=== PATIENT | male | born 1965 | race African-American/Black ===

== ENCOUNTER 2018-01-04 14:53 | Emergency (ER) | payer OTHER, MEDICAID ==
[~2018-01-04] VITALS: Ht 185.4 cm; Wt 172.4 kg
[2018-01-04 14:55] VITALS: BP_SYST 139
[2018-01-04 16:10] LABS: BASOPHILS # (AUTO) 0.1 K/uL (0.0-0.2); BASOPHILS % (AUTO) 1.5 % (0.0-2.0); EOSINOPHILS # (AUTO) 0.2 K/uL (0.0-0.4); EOSINOPHILS % (AUTO) 3.5 % (0.0-4.0); HEMATOCRIT 29.5 % (36-54); HEMOGLOBIN 9.5 g/dL (14.0-18.0); LYMPHOCYTES # (AUTO) 1.6 K/uL (1.0-5.5); LYMPHOCYTES % (AUTO) 33.3 % (20.5-51.5); MEAN CORPUSCULAR HEMOGLOBIN 27 pg (27-31); MEAN CORPUSCULAR HGB CONC 32 % (32-36); MEAN CORPUSCULAR VOLUME 84 fL (79.0-98.0); MONOCYTES # (AUTO) 0.4 K/uL (0.0-1.0); MONOCYTES % (AUTO) 8.8 % (1.7-9.3); NEUTROPHILS # (AUTO) 2.6 K/uL (1.8-7.7); NEUTROPHILS % (AUTO) 52.9 % (40.0-70.0); PLATELET COUNT (AUTO) 251 K/uL (130-430); RED BLOOD CELL COUNT(AUTO) 3.52 MIL/uL (4.2-6.2); RED CELL DISTRIBUTION WIDTH 19.1 % (9.0-15.0); WHITE BLOOD COUNT (AUTO) 4.9 K/uL (4.8-10.8)
[2018-01-04 16:22] LABS: CALCIUM 9.9 mg/dL (8.4-11.0); POTASSIUM 3.3 mmol/L (3.5-5.1)
[2018-01-04 16:27] LABS: ALBUMIN 3.3 g/dL (3.4-4.8); PROTHROMBIN TIME 10.4 SECS (9.5-12.5); TOTAL BILIRUBIN 0.5 mg/dL (0.0-1.0)
[2018-01-04 16:40] LABS: CREATININE 8.26 mg/dL (0.55-1.30)
[2018-01-04 17:46] VITALS: BP_SYST 121
== END 2018-01-04 17:46 | disposition home or self-care (01) ==
LOC: SED 14:53
DX: I16.1 Hypertensive emergency (principal); I12.0 Hypertensive chronic kidney disease with stage 5 chronic kidney disease or end stage renal disease; N18.6 End stage renal disease; M25.552 Pain in left hip; J45.909 Unspecified asthma, uncomplicated; K21.9 Gastro-esophageal reflux disease without esophagitis; Z86.79 Personal history of other diseases of the circulatory system; Z80.0 Family history of malignant neoplasm of digestive organs; Z90.89 Acquired absence of other organs; Z99.2 Dependence on renal dialysis
CPT/HCPCS: 36415; 71045; 73502; 80053; 82550-TC; 84484; 85025; 85610-TC; 85730-TC; 93005; 99285

== ENCOUNTER 2018-02-21 12:05 | Inpatient (IN) | payer OTHER, MEDICAID ==
[~2018-02-21] VITALS: Ht 182.9 cm; Wt 170.1 kg
[2018-02-21] VITALS (12 sets, daily range): BP systolic 93–152
[2018-02-21] MEDS ORDERED: ACETAMINOPHEN 500 MG TABLET PO ONE (12:15)
[2018-02-21] MEDS ORDERED: DILTIAZEM HCL 25 MG/5 ML VIAL IVP ONE (12:15)
[2018-02-21] MEDS ORDERED: NACL 0.9% 1,000 ML IV ONE ×3 (12:30→13:30)
[2018-02-21 12:49] LABS: BASOPHILS % (AUTO) 0.2 % (0.0-2.0); CALCIUM 10.9 mg/dL (8.4-11.0); EOSINOPHILS # (AUTO) 0.1 K/uL (0.0-0.4); EOSINOPHILS % (AUTO) 0.9 % (0.0-4.0); HEMATOCRIT 33.3 % (36-54); HEMOGLOBIN 10.6 g/dL (14.0-18.0); LYMPHOCYTES # (AUTO) 0.5 K/uL (1.0-5.5); LYMPHOCYTES % (AUTO) 5.7 % (20.5-51.5); MEAN CORPUSCULAR HEMOGLOBIN 28 pg (27-31); MEAN CORPUSCULAR HGB CONC 32 % (32-36); MEAN CORPUSCULAR VOLUME 86 fL (79.0-98.0); MONOCYTES # (AUTO) 0.6 K/uL (0.0-1.0); MONOCYTES % (AUTO) 7.2 % (1.7-9.3); NEUTROPHILS # (AUTO) 7.2 K/uL (1.8-7.7); PLATELET COUNT (AUTO) 250 K/uL (130-430); POTASSIUM 5.2 mmol/L (3.5-5.1); RED BLOOD CELL COUNT(AUTO) 3.87 MIL/uL (4.2-6.2); RED CELL DISTRIBUTION WIDTH 17.9 % (9.0-15.0); WHITE BLOOD COUNT (AUTO) 8.4 K/uL (4.8-10.8)
[2018-02-21 12:54] LABS: ALBUMIN 2.8 g/dL (3.4-4.8)
[2018-02-21 12:59] LABS: CREATININE 14.92 mg/dL (0.55-1.30)
[2018-02-21] MEDS ORDERED: ALPR1TAB2 PO (13:10)
[2018-02-21] MEDS ORDERED: NEPH PO (13:10)
[2018-02-21] MEDS ORDERED: CINA60TA PO (13:10)
[2018-02-21] MEDS ORDERED: DIPH50CA38 PO (13:10)
[2018-02-21] MEDS ORDERED: DULO60CA41 PO (13:10)
[2018-02-21] MEDS ORDERED: PREG75CA PO (13:10)
[2018-02-21] MEDS ORDERED: SEVE800T8 PO (13:10)
[2018-02-21] MEDS ORDERED: ALLO100T PO (13:10)
[2018-02-21] MEDS ORDERED: DOCU-144 PO (13:10)
[2018-02-21] MEDS ORDERED: ONDA8TAB9 PO (13:10)
[2018-02-21] MEDS ORDERED: CALC0.258 PO (13:10)
[2018-02-21] MEDS ORDERED: MIDO10TA PO (13:10)
[2018-02-21] MEDS ORDERED: HYDR-4100 PO (13:10)
[2018-02-21] MEDS ORDERED: ESOM40CA PO (13:10)
[2018-02-21] MEDS ORDERED: METO25TA3 PO (13:10)
[2018-02-21] MEDS ORDERED: ASPI325T2 PO (13:10)
[2018-02-21] MEDS ORDERED: ALBUTEROL SULFATE 0.083% 2.5 MG/3 ML VIAL.NEB INH ONE (13:15)
[2018-02-21] MEDS ORDERED: DOPamine PREMIX 250 ML IV ONE (13:54)
[2018-02-21] MEDS: DOPamine PREMIX 250 ML IV PRN ×2 (14:14→14:31)
[2018-02-21] MEDS ORDERED: *HEPARIN PER PHARMACY XX ONE (15:45)
[2018-02-21 16:08] LABS: INR 1.1 (0.80-1.20); PROTHROMBIN TIME 11.3 SECS (9.5-12.5)
[2018-02-21] MEDS ORDERED: HEPARIN SODIUM,PORCINE 5000 UNITS/ML VIAL IVP ONE (16:45)
[2018-02-21] MEDS ORDERED: VANCOMYCIN HCL 2,000 MG in NS 500 ML IV ONE (16:45)
[2018-02-21] MEDS ORDERED: HEPARIN 25,000 UNITS in 250 ML PREMIX IV PRN (17:00)
[2018-02-21] MEDS ORDERED: HEPARIN SODIUM,PORCINE 2000 UNITS/0.4 ML BOLUS IVP PRN (17:00)
[2018-02-21] MEDS ORDERED: HEPARIN SODIUM,PORCINE 3000 UNITS/0.6 ML BOLUS IVP PRN (17:00)
[2018-02-21] MEDS: D5NS 1,000 ML IV SCH (18:57)
[2018-02-21] MEDS: ALBUTEROL SULFATE 0.083% 2.5 MG/3 ML VIAL.NEB INH SCH ×2 (19:56→23:00)
[2018-02-21] MEDS: IPRATROPIUM BROM 0.5 MG/2.5 ML VIAL.NEB (ATROVENT) INH SCH ×2 (19:57→23:00)
[2018-02-22] VITALS (24 sets, daily range): BP systolic 93–148
[2018-02-22] MEDS: ALBUTEROL SULFATE 0.083% 2.5 MG/3 ML VIAL.NEB INH SCH ×6 (03:00→23:48)
[2018-02-22] MEDS: IPRATROPIUM BROM 0.5 MG/2.5 ML VIAL.NEB (ATROVENT) INH SCH ×6 (03:00→23:49)
[2018-02-22] MEDS: ACETAMINOPHEN 325 MG TABLET PO PRN ×2 (04:36→12:25)
[2018-02-22 06:10] LABS: ALBUMIN 2.2 g/dL (3.4-4.8); CALCIUM 9.7 mg/dL (8.4-11.0); POTASSIUM 4.7 mmol/L (3.5-5.1); TOTAL BILIRUBIN 0.9 mg/dL (0.0-1.0)
[2018-02-22 06:29] LABS: BASOPHILS % (AUTO) 0.4 % (0.0-2.0); EOSINOPHILS % (AUTO) 0.5 % (0.0-4.0); HEMATOCRIT 28.2 % (36-54); LYMPHOCYTES # (AUTO) 0.5 K/uL (1.0-5.5); LYMPHOCYTES % (AUTO) 9.8 % (20.5-51.5); MEAN CORPUSCULAR HEMOGLOBIN 28 pg (27-31); MEAN CORPUSCULAR HGB CONC 32 % (32-36); MEAN CORPUSCULAR VOLUME 86 fL (79.0-98.0); MONOCYTES # (AUTO) 0.6 K/uL (0.0-1.0); MONOCYTES % (AUTO) 12.6 % (1.7-9.3); NEUTROPHILS # (AUTO) 3.6 K/uL (1.8-7.7); NEUTROPHILS % (AUTO) 76.7 % (40.0-70.0); PLATELET COUNT (AUTO) 160 K/uL (130-430); RED BLOOD CELL COUNT(AUTO) 3.27 MIL/uL (4.2-6.2); WHITE BLOOD COUNT (AUTO) 4.7 K/uL (4.8-10.8)
[2018-02-22 06:35] LABS: CREATININE 10.48 mg/dL (0.55-1.30)
[2018-02-22] MEDS: DOPamine PREMIX 250 ML IV PRN ×2 (06:55→08:44)
[2018-02-22] MEDS: D5NS 1,000 ML IV SCH (10:31)
[2018-02-22] MEDS: IPRATROPIUM BROM 0.5 MG/2.5 ML VIAL.NEB (ATROVENT) INH PRN (13:42)
[2018-02-22] MEDS: ALBUTEROL SULFATE 0.083% 2.5 MG/3 ML VIAL.NEB INH PRN (13:43)
[2018-02-22] MEDS ORDERED: ACETAMINOPHEN 325 MG TABLET PO PRN (15:15)
[2018-02-22] MEDS ORDERED: AZITHROMYCIN 250 MG TABLET PO ONE (16:00)
[2018-02-22] MEDS: cefTRIAXone 1 GM in D5W 50 ML IV SCH (17:34)
[2018-02-22] MEDS: HEPARIN SODIUM,PORCINE 5000 UNITS/ML VIAL SUBCUT SCH (21:26)
[2018-02-23] VITALS (24 sets, daily range): BP systolic 98–169
[2018-02-23] MEDS: ALBUTEROL SULFATE 0.083% 2.5 MG/3 ML VIAL.NEB INH SCH ×6 (03:00→23:00)
[2018-02-23] MEDS: IPRATROPIUM BROM 0.5 MG/2.5 ML VIAL.NEB (ATROVENT) INH SCH ×6 (03:00→23:00)
[2018-02-23] MEDS: HEPARIN SODIUM,PORCINE 5000 UNITS/ML VIAL SUBCUT SCH ×3 (05:38→22:15)
[2018-02-23] MEDS: ACETAMINOPHEN 325 MG TABLET PO PRN (05:47)
[2018-02-23 06:15] LABS: HEPATITIS A AB, IgM Negative (Negative); HEPATITIS B CORE AB, IgM Negative (Negative); HEPATITIS B SURFACE AG Negative (Negative)
[2018-02-23 06:18] LABS: HEMATOCRIT 27.9 % (36-54); HEMOGLOBIN 9.1 g/dL (14.0-18.0); MEAN CORPUSCULAR HEMOGLOBIN 28 pg (27-31); MEAN CORPUSCULAR HGB CONC 33 % (32-36); MEAN CORPUSCULAR VOLUME 85 fL (79.0-98.0); PLATELET COUNT (AUTO) 152 K/uL (130-430); RED BLOOD CELL COUNT(AUTO) 3.28 MIL/uL (4.2-6.2); RED CELL DISTRIBUTION WIDTH 18.6 % (9.0-15.0); WHITE BLOOD COUNT (AUTO) 6.1 K/uL (4.8-10.8)
[2018-02-23 06:26] LABS: CALCIUM 10.2 mg/dL (8.4-11.0); POTASSIUM 5.4 mmol/L (3.5-5.1); TOTAL BILIRUBIN 0.6 mg/dL (0.0-1.0)
[2018-02-23 06:31] LABS: CREATININE 13.09 mg/dL (0.55-1.30)
[2018-02-23] MEDS: AZITHROMYCIN 250 MG TABLET PO SCH (08:24)
[2018-02-23] MEDS: HYDROcodone/ACETAMIN 5-325 MG TAB (NORCO/ VICODIN) PO PRN ×2 (08:27→17:22)
[2018-02-23 09:08] LABS: BAND % (MANUAL) 3 % (0-6); BASOPHILS % (MANUAL) 0 % (0-2); EOSINOPHILS % (MANUAL) 1 % (0-7); LYMPHOCYTES % (MANUAL) 14 % (20-46); MONOCYTES % (MANUAL) 20 % (0-11)
[2018-02-23] MEDS: cefTRIAXone 1 GM in D5W 50 ML IV SCH (17:22)
[2018-02-24] VITALS (24 sets, daily range): BP systolic 93–141
[2018-02-24] MEDS: ACETAMINOPHEN 325 MG TABLET PO PRN (00:33)
[2018-02-24] MEDS: IPRATROPIUM BROM 0.5 MG/2.5 ML VIAL.NEB (ATROVENT) INH SCH ×5 (03:00→20:07)
[2018-02-24] MEDS: ALBUTEROL SULFATE 0.083% 2.5 MG/3 ML VIAL.NEB INH SCH ×5 (03:00→20:08)
[2018-02-24] MEDS: HEPARIN SODIUM,PORCINE 5000 UNITS/ML VIAL SUBCUT SCH ×3 (06:01→21:23)
[2018-02-24 06:44] LABS: ALBUMIN 1.9 g/dL (3.4-4.8); CALCIUM 10.5 mg/dL (8.4-11.0); CREATININE 11.47 mg/dL (0.55-1.30); PHOSPHORUS 4.8 mg/dL (2.7-4.5); POTASSIUM 4.9 mmol/L (3.5-5.1); TOTAL BILIRUBIN 0.5 mg/dL (0.0-1.0)
[2018-02-24 06:57] LABS: BASOPHILS % (AUTO) 0.7 % (0.0-2.0); EOSINOPHILS # (AUTO) 0.1 K/uL (0.0-0.4); EOSINOPHILS % (AUTO) 1.7 % (0.0-4.0); HEMATOCRIT 27.4 % (36-54); HEMOGLOBIN 8.9 g/dL (14.0-18.0); LYMPHOCYTES # (AUTO) 0.9 K/uL (1.0-5.5); MEAN CORPUSCULAR HEMOGLOBIN 27 pg (27-31); MEAN CORPUSCULAR HGB CONC 32 % (32-36); MEAN CORPUSCULAR VOLUME 85 fL (79.0-98.0); MONOCYTES # (AUTO) 1.3 K/uL (0.0-1.0); MONOCYTES % (AUTO) 19.6 % (1.7-9.3); NEUTROPHILS # (AUTO) 4.6 K/uL (1.8-7.7); PLATELET COUNT (AUTO) 175 K/uL (130-430); RED BLOOD CELL COUNT(AUTO) 3.23 MIL/uL (4.2-6.2); RED CELL DISTRIBUTION WIDTH 18.8 % (9.0-15.0); WHITE BLOOD COUNT (AUTO) 6.9 K/uL (4.8-10.8)
[2018-02-24] MEDS: AZITHROMYCIN 250 MG TABLET PO SCH (09:28)
[2018-02-24] MEDS: HYDROcodone/ACETAMIN 5-325 MG TAB (NORCO/ VICODIN) PO PRN (11:22)
[2018-02-24] MEDS ORDERED: SEVELAMER CARBONATE 2400 MG PO SCH (14:00)
[2018-02-24] MEDS ORDERED: MIDODRINE HCL 5 MG TABLET (PROAMATINE) PO PRN (14:00)
[2018-02-24] MEDS ORDERED: NON-FORMULARY MEDICATION (Esomeprazole Mag Trihydrate (Nexium) 40 MG) PO SCH (14:00)
[2018-02-24] MEDS ORDERED: ACYCLOVIR 400 MG TABLET PO ONE (14:00)
[2018-02-24] MEDS: ALPRAZolam 0.25 MG TABLET PO SCH ×2 (14:43→21:21)
[2018-02-24] MEDS ORDERED: ASPIRIN 325 MG TABLET PO ONE (15:00)
[2018-02-24] MEDS ORDERED: NEPHROVITE, (FOLIC ACID/VITAMIN B COMP W-C 1 TAB) PO ONE (15:00)
[2018-02-24] MEDS ORDERED: methylPREDNISolone SOD SUCC/PF 62.5 MG/ML VIAL IVP ONE (15:15)
[2018-02-24] MEDS ORDERED: PANTOPRAZOLE SODIUM 40 MG TAB PO ONE (15:15)
[2018-02-24] MEDS ORDERED: ALLOPURINOL 100 MG TABLET (ZYLOPRIM) PO ONE (15:15)
[2018-02-24] MEDS ORDERED: METOPROLOL SUCCINATE 25 MG TAB.SR.24H (TOPROL XL) PO ONE (15:15)
[2018-02-24] MEDS ORDERED: CALCITRIOL 0.25 MCG CAPSULE PO ONE (15:15)
[2018-02-24] MEDS ORDERED: ALBUMIN HUMAN 25% 100 ML IV ONE (15:45)
[2018-02-24] MEDS: cefTRIAXone 1 GM in D5W 50 ML IV SCH (16:39)
[2018-02-24] MEDS: SEVELAMER HCL 800 MG TABLET PO SCH (18:31)
[2018-02-24] MEDS ORDERED: CEFEPIME 2 GM in D5W 100 ML IV ONE (18:45)
[2018-02-24] MEDS ORDERED: CEFEPIME 1 GM/VIAL (MAXIPIME) ONE (19:28)
[2018-02-24] MEDS: DOCUSATE SODIUM 100 MG CAPSULE PO SCH (21:21)
[2018-02-24] MEDS: CINACALCET HCL 30 MG TABLET PO SCH (21:21)
[2018-02-24] MEDS: ACYCLOVIR 400 MG TABLET PO SCH (21:21)
[2018-02-24] MEDS: methylPREDNISolone SOD SUCC/PF 62.5 MG/ML VIAL IVP SCH (21:22)
[2018-02-25] VITALS (25 sets, daily range): BP systolic 86–132
[2018-02-25] MEDS: methylPREDNISolone SOD SUCC/PF 62.5 MG/ML VIAL IVP SCH ×3 (05:11→21:11)
[2018-02-25] MEDS: IPRATROPIUM BROM 0.5 MG/2.5 ML VIAL.NEB (ATROVENT) INH PRN (05:13)
[2018-02-25] MEDS: ALBUTEROL SULFATE 0.083% 2.5 MG/3 ML VIAL.NEB INH PRN (05:13)
[2018-02-25] MEDS: HEPARIN SODIUM,PORCINE 5000 UNITS/ML VIAL SUBCUT SCH ×3 (05:15→21:14)
[2018-02-25 06:29] LABS: CALCIUM 10.6 mg/dL (8.4-11.0); POTASSIUM 4.5 mmol/L (3.5-5.1); VANCOMYCIN,RANDOM 6.7 ug/mL
[2018-02-25 06:35] LABS: HEMATOCRIT 28.7 % (36-54); HEMOGLOBIN 9.3 g/dL (14.0-18.0); MEAN CORPUSCULAR HEMOGLOBIN 28 pg (27-31); MEAN CORPUSCULAR HGB CONC 33 % (32-36); MEAN CORPUSCULAR VOLUME 85 fL (79.0-98.0); PLATELET COUNT (AUTO) 237 K/uL (130-430); RED BLOOD CELL COUNT(AUTO) 3.38 MIL/uL (4.2-6.2); RED CELL DISTRIBUTION WIDTH 19.2 % (9.0-15.0)
[2018-02-25 06:46] LABS: CREATININE 9.54 mg/dL (0.55-1.30)
[2018-02-25] MEDS: HYDROcodone/ACETAMIN 5-325 MG TAB (NORCO/ VICODIN) PO PRN ×2 (08:04→16:59)
[2018-02-25] MEDS: ASPIRIN 325 MG TABLET PO SCH (08:04)
[2018-02-25] MEDS: SEVELAMER HCL 800 MG TABLET PO SCH ×3 (08:04→17:00)
[2018-02-25] MEDS: DOCUSATE SODIUM 100 MG CAPSULE PO SCH ×2 (08:04→20:44)
[2018-02-25] MEDS: ACYCLOVIR 400 MG TABLET PO SCH (08:05)
[2018-02-25] MEDS: ALBUTEROL SULFATE 0.083% 2.5 MG/3 ML VIAL.NEB INH SCH ×5 (08:05→23:00)
[2018-02-25] MEDS: AZITHROMYCIN 250 MG TABLET PO SCH (08:05)
[2018-02-25] MEDS: PANTOPRAZOLE SODIUM 40 MG TAB PO SCH (08:05)
[2018-02-25] MEDS: ALPRAZolam 0.25 MG TABLET PO SCH ×3 (08:05→20:44)
[2018-02-25] MEDS: NEPHROVITE, (FOLIC ACID/VITAMIN B COMP W-C 1 TAB) PO SCH (08:05)
[2018-02-25] MEDS: ALLOPURINOL 100 MG TABLET (ZYLOPRIM) PO SCH (08:05)
[2018-02-25] MEDS: IPRATROPIUM BROM 0.5 MG/2.5 ML VIAL.NEB (ATROVENT) INH SCH ×5 (08:05→23:00)
[2018-02-25] MEDS: DULoxetine HCL 30 MG CAPSULE.DR (CYMBALTA) PO SCH (08:06)
[2018-02-25] MEDS: METOPROLOL SUCCINATE 25 MG TAB.SR.24H (TOPROL XL) PO SCH (08:06)
[2018-02-25] MEDS: CALCITRIOL 0.25 MCG CAPSULE PO SCH (09:00)
[2018-02-25] MEDS ORDERED: DULoxetine HCL 30 MG CAPSULE.DR (CYMBALTA) PO SCH (09:00)
[2018-02-25] MEDS ORDERED: VANCOMYCIN HCL 2,000 MG in NS 500 ML IV SCH (09:00)
[2018-02-25] MEDS ORDERED: NEPHROVITE, (FOLIC ACID/VITAMIN B COMP W-C 1 TAB) PO SCH (09:00)
[2018-02-25 14:29] LABS: LYMPHOCYTES % (MANUAL) 14 % (20-46); MONOCYTES % (MANUAL) 2 % (0-11)
[2018-02-25 14:30] LABS: BASOPHILS % (MANUAL) 0 % (0-2); EOSINOPHILS % (MANUAL) 0 % (0-7)
[2018-02-25] MEDS: CINACALCET HCL 30 MG TABLET PO SCH (20:43)
[2018-02-25] MEDS: CEFEPIME 2 GM in D5W 100 ML IV SCH (20:43)
[2018-02-25] MEDS: HYDROcodone/ACETAMIN 10-325 MG TAB PO PRN (21:23)
[2018-02-26] VITALS (24 sets, daily range): BP systolic 90–140
[2018-02-26] MEDS: ALBUTEROL SULFATE 0.083% 2.5 MG/3 ML VIAL.NEB INH SCH ×6 (03:00→23:31)
[2018-02-26] MEDS: IPRATROPIUM BROM 0.5 MG/2.5 ML VIAL.NEB (ATROVENT) INH SCH ×6 (03:00→23:31)
[2018-02-26] MEDS: methylPREDNISolone SOD SUCC/PF 62.5 MG/ML VIAL IVP SCH (05:08)
[2018-02-26] MEDS: HEPARIN SODIUM,PORCINE 5000 UNITS/ML VIAL SUBCUT SCH ×3 (05:10→22:44)
[2018-02-26 06:24] LABS: CALCIUM 10.5 mg/dL (8.4-11.0); POTASSIUM 4.4 mmol/L (3.5-5.1)
[2018-02-26 06:45] LABS: HEMATOCRIT 27.3 % (36-54); HEMOGLOBIN 8.7 g/dL (14.0-18.0); MEAN CORPUSCULAR HEMOGLOBIN 27 pg (27-31); MEAN CORPUSCULAR HGB CONC 32 % (32-36); MEAN CORPUSCULAR VOLUME 86 fL (79.0-98.0); PLATELET COUNT (AUTO) 301 K/uL (130-430); RED BLOOD CELL COUNT(AUTO) 3.19 MIL/uL (4.2-6.2); RED CELL DISTRIBUTION WIDTH 19.3 % (9.0-15.0)
[2018-02-26 06:47] LABS: CREATININE 11.76 mg/dL (0.55-1.30)
[2018-02-26 07:29] LABS: WHITE BLOOD COUNT (AUTO) 10.3 K/uL (4.8-10.8)
[2018-02-26] MEDS: ALLOPURINOL 100 MG TABLET (ZYLOPRIM) PO SCH (08:02)
[2018-02-26] MEDS: METOPROLOL SUCCINATE 25 MG TAB.SR.24H (TOPROL XL) PO SCH (08:02)
[2018-02-26] MEDS: NEPHROVITE, (FOLIC ACID/VITAMIN B COMP W-C 1 TAB) PO SCH (08:02)
[2018-02-26] MEDS: DOCUSATE SODIUM 100 MG CAPSULE PO SCH ×2 (08:02→22:47)
[2018-02-26] MEDS: AZITHROMYCIN 250 MG TABLET PO SCH (08:02)
[2018-02-26] MEDS: PANTOPRAZOLE SODIUM 40 MG TAB PO SCH (08:03)
[2018-02-26] MEDS: ASPIRIN 325 MG TABLET PO SCH (08:03)
[2018-02-26] MEDS: ALPRAZolam 0.25 MG TABLET PO SCH ×3 (08:03→22:47)
[2018-02-26] MEDS: DULoxetine HCL 30 MG CAPSULE.DR (CYMBALTA) PO SCH (08:03)
[2018-02-26] MEDS: CALCITRIOL 0.25 MCG CAPSULE PO SCH (08:03)
[2018-02-26] MEDS: SEVELAMER HCL 800 MG TABLET PO SCH ×3 (08:53→17:30)
[2018-02-26 10:30] LABS: ATYPICAL LYMPHOCYTES % 0 % (0-0); BASOPHILS % (MANUAL) 0 % (0-2); EOSINOPHILS % (MANUAL) 0 % (0-7); LYMPHOCYTES % (MANUAL) 12 % (20-46); MONOCYTES % (MANUAL) 2 % (0-11)
[2018-02-26] MEDS: methylPREDNISolone SOD SUCC 40 MG/ML VIAL IVP SCH ×2 (14:48→22:41)
[2018-02-26] MEDS ORDERED: VANCOMYCIN HCL 2,000 MG in NS 500 ML IV SCH (20:00)
[2018-02-26] MEDS: CINACALCET HCL 30 MG TABLET PO SCH (22:48)
[2018-02-26] MEDS: CEFEPIME 2 GM in D5W 100 ML IV SCH (23:02)
[2018-02-27] VITALS (17 sets, daily range): BP systolic 105–142
[2018-02-27] MEDS: IPRATROPIUM BROM 0.5 MG/2.5 ML VIAL.NEB (ATROVENT) INH SCH ×6 (03:00→23:00)
[2018-02-27] MEDS: ALBUTEROL SULFATE 0.083% 2.5 MG/3 ML VIAL.NEB INH SCH ×6 (03:00→23:00)
[2018-02-27] MEDS: methylPREDNISolone SOD SUCC 40 MG/ML VIAL IVP SCH ×3 (06:23→21:04)
[2018-02-27] MEDS: HEPARIN SODIUM,PORCINE 5000 UNITS/ML VIAL SUBCUT SCH ×3 (06:24→21:10)
[2018-02-27 06:44] LABS: CALCIUM 9.8 mg/dL (8.4-11.0); POTASSIUM 4.3 mmol/L (3.5-5.1)
[2018-02-27 06:52] LABS: CREATININE 10.39 mg/dL (0.55-1.30)
[2018-02-27 06:59] LABS: HEMATOCRIT 27.1 % (36-54); MEAN CORPUSCULAR HEMOGLOBIN 28 pg (27-31); MEAN CORPUSCULAR HGB CONC 33 % (32-36); PLATELET COUNT (AUTO) 348 K/uL (130-430); RED BLOOD CELL COUNT(AUTO) 3.22 MIL/uL (4.2-6.2); RED CELL DISTRIBUTION WIDTH 19.8 % (9.0-15.0)
[2018-02-27 07:34] LABS: MEAN CORPUSCULAR VOLUME 84 fL (79.0-98.0)
[2018-02-27] MEDS: ASPIRIN 325 MG TABLET PO SCH (08:13)
[2018-02-27] MEDS: DULoxetine HCL 30 MG CAPSULE.DR (CYMBALTA) PO SCH (08:14)
[2018-02-27] MEDS: METOPROLOL SUCCINATE 25 MG TAB.SR.24H (TOPROL XL) PO SCH (08:14)
[2018-02-27] MEDS: SEVELAMER HCL 800 MG TABLET PO SCH ×3 (08:14→19:01)
[2018-02-27] MEDS: CALCITRIOL 0.25 MCG CAPSULE PO SCH (08:14)
[2018-02-27] MEDS: NEPHROVITE, (FOLIC ACID/VITAMIN B COMP W-C 1 TAB) PO SCH (08:15)
[2018-02-27] MEDS: PANTOPRAZOLE SODIUM 40 MG TAB PO SCH (08:15)
[2018-02-27] MEDS: ALPRAZolam 0.25 MG TABLET PO SCH ×3 (08:15→21:04)
[2018-02-27] MEDS: ALLOPURINOL 100 MG TABLET (ZYLOPRIM) PO SCH (08:15)
[2018-02-27] MEDS: DOCUSATE SODIUM 100 MG CAPSULE PO SCH ×2 (08:16→21:04)
[2018-02-27 08:28] LABS: ATYPICAL LYMPHOCYTES % 0 % (0-0); BAND % (MANUAL) 4 % (0-6); BASOPHILS % (MANUAL) 0 % (0-2); EOSINOPHILS % (MANUAL) 0 % (0-7); LYMPHOCYTES % (MANUAL) 11 % (20-46); MONOCYTES % (MANUAL) 4 % (0-11)
[2018-02-27] MEDS: HYDROcodone/ACETAMIN 10-325 MG TAB PO PRN (11:56)
[2018-02-27] MEDS: CEFEPIME 2 GM in D5W 100 ML IV SCH (21:04)
[2018-02-27] MEDS: CINACALCET HCL 30 MG TABLET PO SCH (21:04)
[2018-02-28 00:42] VITALS: BP_SYST 121
[2018-02-28] MEDS: IPRATROPIUM BROM 0.5 MG/2.5 ML VIAL.NEB (ATROVENT) INH SCH ×6 (03:00→23:00)
[2018-02-28] MEDS: ALBUTEROL SULFATE 0.083% 2.5 MG/3 ML VIAL.NEB INH SCH ×6 (03:00→23:00)
[2018-02-28] MEDS: methylPREDNISolone SOD SUCC 40 MG/ML VIAL IVP SCH ×3 (05:16→21:22)
[2018-02-28] MEDS: HEPARIN SODIUM,PORCINE 5000 UNITS/ML VIAL SUBCUT SCH ×3 (05:18→21:23)
[2018-02-28 05:52] LABS: BASOPHILS % (AUTO) 0.2 % (0.0-2.0); HEMATOCRIT 27.9 % (36-54); HEMOGLOBIN 9.2 g/dL (14.0-18.0); LYMPHOCYTES # (AUTO) 1.1 K/uL (1.0-5.5); LYMPHOCYTES % (AUTO) 8.4 % (20.5-51.5); MEAN CORPUSCULAR HEMOGLOBIN 27 pg (27-31); MEAN CORPUSCULAR HGB CONC 33 % (32-36); MEAN CORPUSCULAR VOLUME 83 fL (79.0-98.0); MONOCYTES # (AUTO) 0.2 K/uL (0.0-1.0); MONOCYTES % (AUTO) 1.5 % (1.7-9.3); NEUTROPHILS # (AUTO) 11.3 K/uL (1.8-7.7); NEUTROPHILS % (AUTO) 89.9 % (40.0-70.0); PLATELET COUNT (AUTO) 376 K/uL (130-430); RED BLOOD CELL COUNT(AUTO) 3.36 MIL/uL (4.2-6.2); RED CELL DISTRIBUTION WIDTH 19.1 % (9.0-15.0); WHITE BLOOD COUNT (AUTO) 12.6 K/uL (4.8-10.8)
[2018-02-28 07:40] VITALS: BP_SYST 134
[2018-02-28 08:00] VITALS: BP_SYST 134
[2018-02-28] MEDS: SEVELAMER HCL 800 MG TABLET PO SCH ×3 (08:15→18:08)
[2018-02-28] MEDS: ASPIRIN 325 MG TABLET PO SCH (08:15)
[2018-02-28] MEDS: DOCUSATE SODIUM 100 MG CAPSULE PO SCH ×2 (08:15→21:22)
[2018-02-28] MEDS: NEPHROVITE, (FOLIC ACID/VITAMIN B COMP W-C 1 TAB) PO SCH (08:16)
[2018-02-28] MEDS: ALLOPURINOL 100 MG TABLET (ZYLOPRIM) PO SCH (08:16)
[2018-02-28] MEDS: PANTOPRAZOLE SODIUM 40 MG TAB PO SCH (08:16)
[2018-02-28] MEDS: DULoxetine HCL 30 MG CAPSULE.DR (CYMBALTA) PO SCH (08:16)
[2018-02-28] MEDS: CALCITRIOL 0.25 MCG CAPSULE PO SCH (08:17)
[2018-02-28] MEDS: ALPRAZolam 0.25 MG TABLET PO SCH ×3 (08:17→21:21)
[2018-02-28] MEDS: HEPARIN SODIUM,PORCINE 5000 UNITS/ML VIAL IV ONE (08:45)
[2018-02-28] MEDS: METOPROLOL SUCCINATE 25 MG TAB.SR.24H (TOPROL XL) PO SCH (09:00)
[2018-02-28 12:00] VITALS: BP_SYST 113
[2018-02-28 16:07] VITALS: BP_SYST 118
[2018-02-28] MEDS: CEFEPIME 2 GM in D5W 100 ML IV SCH (21:21)
[2018-02-28] MEDS: CINACALCET HCL 30 MG TABLET PO SCH (21:22)
[2018-03-01 00:53] VITALS: BP_SYST 106
[2018-03-01] MEDS: ALBUTEROL SULFATE 0.083% 2.5 MG/3 ML VIAL.NEB INH SCH ×5 (02:03→20:17)
[2018-03-01] MEDS: IPRATROPIUM BROM 0.5 MG/2.5 ML VIAL.NEB (ATROVENT) INH SCH ×5 (02:03→20:17)
[2018-03-01] MEDS: methylPREDNISolone SOD SUCC 40 MG/ML VIAL IVP SCH (06:41)
[2018-03-01] MEDS: HYDROcodone/ACETAMIN 10-325 MG TAB PO PRN (06:44)
[2018-03-01 07:54] VITALS: BP_SYST 120
[2018-03-01] MEDS: SEVELAMER HCL 800 MG TABLET PO SCH ×3 (09:18→17:26)
[2018-03-01] MEDS: ASPIRIN 325 MG TABLET PO SCH (09:19)
[2018-03-01] MEDS: PANTOPRAZOLE SODIUM 40 MG TAB PO SCH (09:20)
[2018-03-01] MEDS: DOCUSATE SODIUM 100 MG CAPSULE PO SCH ×2 (09:23→20:13)
[2018-03-01] MEDS: DULoxetine HCL 30 MG CAPSULE.DR (CYMBALTA) PO SCH (09:24)
[2018-03-01] MEDS: NEPHROVITE, (FOLIC ACID/VITAMIN B COMP W-C 1 TAB) PO SCH (09:25)
[2018-03-01] MEDS: CALCITRIOL 0.25 MCG CAPSULE PO SCH (09:26)
[2018-03-01] MEDS: METOPROLOL SUCCINATE 25 MG TAB.SR.24H (TOPROL XL) PO SCH (09:27)
[2018-03-01] MEDS: ALLOPURINOL 100 MG TABLET (ZYLOPRIM) PO SCH (09:28)
[2018-03-01] MEDS: ALPRAZolam 0.25 MG TABLET PO SCH ×3 (09:28→20:14)
[2018-03-01 11:48] VITALS: BP_SYST 103
[2018-03-01 12:07] VITALS: BP_SYST 124
[2018-03-01] MEDS: HEPARIN SODIUM,PORCINE 5000 UNITS/ML VIAL SUBCUT SCH (14:20)
[2018-03-01 15:37] VITALS: BP_SYST 103
[2018-03-01 20:00] VITALS: BP_SYST 105
[2018-03-01] MEDS: CINACALCET HCL 30 MG TABLET PO SCH (20:13)
[2018-03-01] MEDS: CEFEPIME 2 GM in D5W 100 ML IV SCH (20:13)
[2018-03-02] MEDS ORDERED: PREDNISONE 20 MG TABLET PO SCH (09:00)
== END 2018-03-01 21:05 | DRG 871 ==
LOC: SED 12:05 → SIC 13:46 → STU 02-27 16:56
PROVIDERS: ADMIT Internal Medicine Hospice and Palliative Medicine; ATTEND Internal Medicine Hospice and Palliative Medicine
PROC: 5A09357 Assistance with Respiratory Ventilation, Less than 24 Consecutive Hours, Continuous Positive Airway Pressure (ICD-10-PCS; 2018-02-21)
PROC: 5A1D70Z Performance of Urinary Filtration, Intermittent, Less than 6 Hours Per Day (ICD-10-PCS; principal; 2018-02-22)
PROC: 5A09357 Assistance with Respiratory Ventilation, Less than 24 Consecutive Hours, Continuous Positive Airway Pressure (ICD-10-PCS; 2018-02-22)
PROC: 5A1D70Z Performance of Urinary Filtration, Intermittent, Less than 6 Hours Per Day (ICD-10-PCS; 2018-02-23)
PROC: 5A1D70Z Performance of Urinary Filtration, Intermittent, Less than 6 Hours Per Day (ICD-10-PCS; 2018-02-24)
PROC: 5A1D70Z Performance of Urinary Filtration, Intermittent, Less than 6 Hours Per Day (ICD-10-PCS; 2018-02-26)
PROC: 5A1D70Z Performance of Urinary Filtration, Intermittent, Less than 6 Hours Per Day (ICD-10-PCS; 2018-02-28)
DX: A41.9 Sepsis, unspecified organism (principal); R65.21 Severe sepsis with septic shock; I13.2 Hypertensive heart and chronic kidney disease with heart failure and with stage 5 chronic kidney disease, or end stage renal disease; J96.01 Acute respiratory failure with hypoxia; I27.20 Pulmonary hypertension, unspecified; E11.22 Type 2 diabetes mellitus with diabetic chronic kidney disease; J18.9 Pneumonia, unspecified organism; J96.02 Acute respiratory failure with hypercapnia; E66.2 Morbid (severe) obesity with alveolar hypoventilation; E83.52 Hypercalcemia; I50.9 Heart failure, unspecified; N18.6 End stage renal disease; I42.9 Cardiomyopathy, unspecified; J44.0 Chronic obstructive pulmonary disease with (acute) lower respiratory infection; K21.9 Gastro-esophageal reflux disease without esophagitis; M14.671 Charcot's joint, right ankle and foot; J20.9 Acute bronchitis, unspecified; E11.42 Type 2 diabetes mellitus with diabetic polyneuropathy; R74.0 Nonspecific elevation of levels of transaminase and lactic acid dehydrogenase [LDH]; E87.5 Hyperkalemia; D63.1 Anemia in chronic kidney disease; R79.1 Abnormal coagulation profile; M14.672 Charcot's joint, left ankle and foot; W19.XXXA Unspecified fall, initial encounter; Y93.89 Activity, other specified; Y92.89 Other specified places as the place of occurrence of the external cause; Y99.8 Other external cause status; Q66.89 Other specified congenital deformities of feet; Z95.0 Presence of cardiac pacemaker; Z99.2 Dependence on renal dialysis; Z88.0 Allergy status to penicillin; Z79.899 Other long term (current) drug therapy; Z79.82 Long term (current) use of aspirin; Z90.49 Acquired absence of other specified parts of digestive tract; Z94.7 Corneal transplant status
CPT/HCPCS: 36415; 36600; 71045; 71250-TC; 78580-TC; 80048; 80053; 80074; 80202-TC; 82803-TC; 82962; 83605; 83880; 84100-TC; 84484; 85007; 85025; 85027; 85379; 85610-TC; 85730-TC; 86710; 86713; 86738; 87040-TC; 87081; 90935; 90937; 93005; 93306; 94640; 94660; 94760; 96361; 96365; 96375; 99285; A6209; A9540; J0692; J0696; J1030; J1265; J1644; J1956; J2930; J3370; J7030; J7040; J7042; J7050; J7060; P9046; Q0144

== ENCOUNTER 2018-12-01 21:59 | Emergency (ER) | payer MEDICAID, OTHER ==
[~2018-12-01] VITALS: Ht 185.4 cm; Wt 163.3 kg
[~2018-12-01 21:59] MED LIST: ALLO100T PO; ALPR1TAB2 PO; ASPI-989 PO; CALC0.258 PO; CINA60TA PO; DIPH50CA38 PO; DOCU-144 PO; DULO60CA41 PO; ESOM40CA PO; HYDR-4100 PO; METO25TA3 PO; MIDO10TA PO; NEPH PO; ONDA8TAB9 PO; PREG75CA PO; SEVE800T8 PO
[2018-12-01 22:24] VITALS: BP_SYST 130
[2018-12-01] MEDS ORDERED: MORPHINE 4 MG/ML INJ. SYRINGE IM ONE (22:45)
[2018-12-01] MEDS ORDERED: fentaNYL CITRATE/PF 100 MCG/2 ML AMP IVP ONE (23:45)
[2018-12-02] MEDS ORDERED: fentaNYL CITRATE/PF 100 MCG/2 ML AMP IVP ONE (00:30)
[2018-12-02] MEDS ORDERED: IBUPROFEN 800 MG TABLET PO ONE (00:45)
[2018-12-02 01:05] VITALS: BP_SYST 130
== END 2018-12-02 01:05 | disposition home or self-care (01) ==
LOC: SED 21:59
DX: G62.9 Polyneuropathy, unspecified (principal); J45.909 Unspecified asthma, uncomplicated; K21.9 Gastro-esophageal reflux disease without esophagitis; I10 Essential (primary) hypertension; Z86.79 Personal history of other diseases of the circulatory system; Z88.0 Allergy status to penicillin; Z79.82 Long term (current) use of aspirin; Z79.899 Other long term (current) drug therapy
CPT/HCPCS: 96372; 96374; 96376; 99283; J2270; J3010

== ENCOUNTER 2018-12-03 10:02 | Emergency (ER) | payer OTHER ==
[~2018-12-03] VITALS: Ht 185.4 cm; Wt 165.6 kg
[2018-12-03 10:14] VITALS: BP_SYST 110
[2018-12-03] MEDS ORDERED: fentaNYL CITRATE/PF 100 MCG/2 ML AMP IM ONE (10:30)
[2018-12-03] MEDS ORDERED: ONDANSETRON 4 MG ODT TAB PO ONE (10:30)
[2018-12-03 10:42] LABS: HEMATOCRIT 43.6 % (36-54); MEAN CORPUSCULAR HEMOGLOBIN 31 pg (27-31); MEAN CORPUSCULAR HGB CONC 32 % (32-36); MEAN CORPUSCULAR VOLUME 96 fL (79.0-98.0); PLATELET COUNT (AUTO) 167 K/uL (130-430); RED BLOOD CELL COUNT(AUTO) 4.56 MIL/uL (4.2-6.2); WHITE BLOOD COUNT (AUTO) 13.5 K/uL (4.8-10.8)
[2018-12-03 10:56] LABS: CALCIUM 8.5 mg/dL (8.4-11.0)
[2018-12-03 11:00] LABS: ALBUMIN 2.9 g/dL (3.4-4.8); TOTAL BILIRUBIN 0.6 mg/dL (0.0-1.0)
[2018-12-03 11:03] LABS: CREATININE 14.73 mg/dL (0.55-1.30); POTASSIUM 5.5 mmol/L (3.5-5.1)
[2018-12-03 11:20] LABS: BAND % (MANUAL) 10 % (0-6)
[2018-12-03 11:21] LABS: BASOPHILS % (MANUAL) 0 % (0-2); EOSINOPHILS % (MANUAL) 0 % (0-7); LYMPHOCYTES % (MANUAL) 4 % (20-46); MONOCYTES % (MANUAL) 8 % (0-11)
[2018-12-03 11:25] LABS: C-REACTIVE PROTEIN QUANT 32.9 mg/dL (0-0.5)
[2018-12-03 11:39] VITALS: BP_SYST 110
== END 2018-12-03 11:30 | disposition home or self-care (01) ==
LOC: SED 10:02
DX: G62.9 Polyneuropathy, unspecified (principal); J45.909 Unspecified asthma, uncomplicated; K21.9 Gastro-esophageal reflux disease without esophagitis; I12.0 Hypertensive chronic kidney disease with stage 5 chronic kidney disease or end stage renal disease; N18.6 End stage renal disease; Z99.2 Dependence on renal dialysis; Z88.0 Allergy status to penicillin; Z86.79 Personal history of other diseases of the circulatory system; Z79.82 Long term (current) use of aspirin
CPT/HCPCS: 36415; 80053; 85007; 85027; 86140; 96372; 99283; J3010; Q0162

== ENCOUNTER 2019-02-12 14:30 | Emergency (ER) | payer OTHER, MEDICAID ==
[~2019-02-12] VITALS: Ht 185.4 cm; Wt 147.4 kg
[2019-02-12 14:42] VITALS: BP_SYST 120
--- NOTE | 2019-02-12 14:42 | NUR ---
Patient to ER bed 6 to gown for evaluation. Side rails up. Report given to KADY Maradiaga.
--- NOTE | 2019-02-12 14:46 | NUR ---
Patient is awake, alert, and oriented x4. 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 Patient reports being anuric. Patient finished hemodialysis earlier today, they removed 3.6L of fluid.
[2019-02-12] MEDS ORDERED: fentaNYL CITRATE/PF 100 MCG/2 ML AMP IVP ONE (15:30)
[2019-02-12] MEDS ORDERED: ONDANSETRON HCL 4 MG/2 ML VIAL IVP ONE (15:30)
--- NOTE | 2019-02-12 15:33 | NUR ---
ER Dr. De La Torre at bedside examining patient.
[2019-02-12 16:10] VITALS: BP_SYST 148
--- NOTE | 2019-02-12 16:10 | NUR ---
Patient given written and verbal discharge instructions and verbalizes understanding. ER MD discussed with patient the results and treatment provided. Patient in stable condition. ID arm band removed. IV catheter removed intact and dressing applied, no active bleeding. Patient educated on pain management and to follow up with PMD. Pain Scale 4/10, Dr. De La Torre is aware. Opportunity for questions provided and answered. Medication side effect fact sheet provided.
== END 2019-02-12 16:10 | disposition home or self-care (01) ==
LOC: SED 14:30
DX: T82.49XA Other complication of vascular dialysis catheter, initial encounter (principal); S51.832A Puncture wound without foreign body of left forearm, initial encounter; Z79.899 Other long term (current) drug therapy; X58.XXXA Exposure to other specified factors, initial encounter; Y93.89 Activity, other specified; Y92.89 Other specified places as the place of occurrence of the external cause; Y99.8 Other external cause status
CPT/HCPCS: 12001; 93005; 96374; 96375; 99283; J2405; J3010

== ENCOUNTER 2024-04-02 14:25 | Emergency (ER) | payer OTHER ==
[~2024-04-02] VITALS: Ht 185.4 cm; Wt 140.6 kg
[~2024-04-02 14:25] MED LIST changes: +APIX2.5T PO; -DULO60CA41 PO; +DULO60CA42 PO; +HYDR-3927 PO; -HYDR-4100 PO; +NEU300 PO
[2024-04-02 14:38] VITALS: PULSE 97; RESP 18; TEMP 96.9; O2SAT 78
[2024-04-02 15:10] LABS: BASOPHILS # (AUTO) 0.1 K/uL (0.0-0.2); BASOPHILS % (AUTO) 2.4 % (0.0-2.0); EOSINOPHILS # (AUTO) 0.5 K/uL (0.0-0.4); EOSINOPHILS % (AUTO) 9.9 % (0.0-4.0); HEMATOCRIT 38.5 % (36-54); HEMOGLOBIN 12.8 g/dL (14.0-18.0); LYMPHOCYTES # (AUTO) 1.7 K/uL (1.0-5.5); LYMPHOCYTES % (AUTO) 31.2 % (20.5-51.5); MEAN CORPUSCULAR HEMOGLOBIN 29 pg (27-31); MEAN CORPUSCULAR HGB CONC 33 % (32-36); MEAN CORPUSCULAR VOLUME 86 fL (79.0-98.0); MONOCYTES # (AUTO) 0.8 K/uL (0.0-1.0); MONOCYTES % (AUTO) 14.5 % (1.7-9.3); NEUTROPHILS # (AUTO) 2.2 K/uL (1.8-7.7); PLATELET COUNT (AUTO) 204 K/uL (130-430); RED BLOOD CELL COUNT(AUTO) 4.48 MIL/uL (4.2-6.2); RED CELL DISTRIBUTION WIDTH 14.6 % (9.0-15.0); WHITE BLOOD COUNT (AUTO) 5.3 K/uL (4.8-10.8)
[2024-04-02 15:34] LABS: ALANINE AMINOTRANSFERASE 9 U/L (12-78); ALBUMIN 3.4 g/dL (3.4-4.8); ANION GAP 6 (5-15); ASPARTATE AMINOTRANSFERASE < 5 U/L (10-37); BILIRUBIN,DIRECT 0.1 mg/dL (0.0-0.3); CALCIUM 9.8 mg/dL (8.4-11.0); CARBON DIOXIDE 34 mmol/L (23-29); CHLORIDE 101 mmol/L (98-107); GFR AFRICAN AMERICAN 9 mL/min (>90); GLUCOSE 81 mg/dL (74-106); SODIUM SERUM 141 mmol/L (136-145); TOTAL BILIRUBIN 0.5 mg/dL (0.0-1.0); UREA NITROGEN, BLOOD 15 mg/dL (8-21)
[2024-04-02 15:35] LABS: GFR NON AFRICAN-AMERICAN 7 mL/min (>90)
[2024-04-02 15:37] LABS: CREATININE 8.14 mg/dL (0.55-1.30)
[2024-04-02] MEDS ORDERED: CYPR4TAB50 PO (15:50)
[2024-04-02] MEDS ORDERED: METH-776 PO (15:50)
[2024-04-02 16:02] VITALS: BP_SYST 138; PULSE 97; RESP 18; TEMP 96.9; O2SAT 78
== END 2024-04-02 16:01 | disposition home or self-care (01) ==
LOC: SED 14:25
DX: L29.9 Pruritus, unspecified (principal); T50.995A Adverse effect of other drugs, medicaments and biological substances, initial encounter; Y92.89 Other specified places as the place of occurrence of the external cause; J45.909 Unspecified asthma, uncomplicated; I12.0 Hypertensive chronic kidney disease with stage 5 chronic kidney disease or end stage renal disease; N18.6 End stage renal disease; Z99.2 Dependence on renal dialysis; Z88.1 Allergy status to other antibiotic agents; Z91.013 Allergy to seafood; Z79.899 Other long term (current) drug therapy; Z79.2 Long term (current) use of antibiotics
CPT/HCPCS: 36415; 80048; 80076; 85025; 99283